=== PATIENT | male | born 1965 | race Caucasian/White ===

== ENCOUNTER → 2016-07-12 | Outpatient (CLI) | payer BC ==
--- NOTE | 2016-07-25 20:20 | RADIOLOGY REPORT PS360 ---
TECHNIQUE: Low dose scanning through the for the purposes of evaluating coronary artery calcification. Computer processing software analysis determined the calcium scoring FINDINGS The coronary artery calcium smart score is 0. = Imply Very low cardiovascular disease risk No identifiable atherosclerotic calcific plaque involving coronary arteries is evident on this scan on visual inspection nor computer processing. Heart appears normal size. . Trace pericardial fluid Asscending aorta measures up to. 3.9 cm reflecting generous caliber ascending aorta . Lung bases with some scant chronic changes but no active disease nor focal lesions of concern. Calcified left hilar nodes reflecting old renal this disease. IMPRESSION: 1. Coronary calcium score of 0. = Very low cardiovascular disease risk 2. Trace pericardial fluid most evident towards superior pericardial reflection Scant calcified plaque at the ascending aorta
== END ==
LOC: RAD 07:25
DX: R06.09 Other forms of dyspnea (principal); Z82.49 Family history of ischemic heart disease and other diseases of the circulatory system